=== PATIENT | female | born 1980 | race African-American/Black ===

== ENCOUNTER 2017-08-15 20:26 | Inpatient (IN) | payer SELFPAY ==
[~2017-08-15] VITALS: Ht 170.2 cm; Wt 83.9 kg
[2017-08-15] MEDS: LACTATED RINGERS 1,000 ML IV SCH ×2 (21:00→22:56)
[2017-08-15] MEDS ORDERED: BUTORPHANOL TARTRATE 2 MG/ML VIAL IV PRN (21:45)
[2017-08-15] MEDS ORDERED: NALOXONE HCL 0.4 MG/ML 1ML VIAL IM PRN (21:45)
[2017-08-15] MEDS ORDERED: LIDOCAINE HCL 1% 20ML VIAL (Pyxis) INJ INFIL SCH (21:45)
[2017-08-15] MEDS ORDERED: METHYLERGONOVINE MALEATE 0.2 MG/ML IM PRN (21:45)
[2017-08-15 22:23] LABS: CLARITY URINE CLEAR (CLEAR); COLOR URINE YELLOW (YELLOW); KETONES URINE NEGATIVE (NEGATIVE); LEUKOCYTE ESTERASE URINE NEGATIVE (NEGATIVE); NITRITE URINE NEGATIVE (NEGATIVE); OCCULT BLOOD URINE NEGATIVE (NEGATIVE); PH URINE 7.5 (4.5-8.0); PROTEIN URINE NEGATIVE (NEGATIVE); SPECIFIC GRAVITY URINE 1.013 (1.005-1.030)
[2017-08-15 22:27] LABS: BASOPHILS % 0.2 % (0.0-2.0); EOSINOPHILS % 0.7 % (0.0-5.0); HEMATOCRIT. 39.9 % (36.0-48.0); HEMOGLOBIN. 13.2 g/dL (12.0-16.0); LYMPHOCYTES % 18.1 % (20.0-50.0); MEAN CORPUSCULAR HEMOGLOBIN 28.8 pg (28.0-32.0); MEAN CORPUSCULAR VOLUME 86.7 fL (81.0-99.0); MEAN PLATELET VOLUME 9.8 fl (7.4-10.4); MONOCYTES % 7.1 % (2.0-8.0); NEUTROPHILS % 73.9 % (40.0-76.0); PLATELET 170 x1000/uL (130-400); RED CELL DISTRIBUTION WIDTH 14.2 % (11.6-14.6)
[2017-08-15 22:30] LABS: PARTIAL THROMBOPLASTIN TIME 30.5 sec (23.4-31.0); PROTHROMBIN TIME 10.1 sec (9.4-11.6)
[2017-08-15 22:41] LABS: *AMPHETAMINES SCREEN URINE NEGATIVE (NEGATIVE); *BARBITURATES SCREEN URINE NEGATIVE (NEGATIVE); *BENZODIAZEPINES SCREEN URINE NEGATIVE (NEGATIVE); *COCAINE SCREEN URINE NEGATIVE (NEGATIVE); CANNABINOID URINE SCREEN NEGATIVE (NEGATIVE); METHADONE URINE SCREEN NEGATIVE (NEGATIVE); OPIATES URINE SCREEN NEGATIVE (NEGATIVE); PHENCYCLIDINE URINE SCREEN NEGATIVE (NEGATIVE)
[2017-08-15] MEDS ORDERED: IBUPROFEN 400MG TABLET PO PRN (22:45)
[2017-08-15] MEDS ORDERED: LANOLIN OINT 0.25 GM TUBE TOP PRN (22:45)
[2017-08-15] MEDS ORDERED: IBUPROFEN 800MG TABLET PO PRN (22:45)
[2017-08-15] MEDS ORDERED: BENZOCAINE/LANOLIN/ALOE VERA SPRAY TOP PRN (22:45)
[2017-08-15] MEDS ORDERED: DEXT 5%/LR + PITOCIN 20UNITS/L 1,000 ML IV SCH (23:08)
[2017-08-16 03:00] VITALS: BP 132/60
[2017-08-16 03:30] VITALS: BP 117/71
[2017-08-16 04:45] VITALS: BP 111/64
[2017-08-16 07:38] VITALS: BP 104/74
[2017-08-16] MEDS: PRENATAL VIT/FE FUMARATE/FA TABLET PO SCH (09:03)
[2017-08-16 10:46] LABS: HEMATOCRIT 37.8 % (36.0-48.0); HEMOGLOBIN 12.6 g/dL (12.0-16.0)
[2017-08-16 14:00] VITALS: BP 130/83
[2017-08-16 23:10] VITALS: BP 131/69
[2017-08-17 08:00] VITALS: BP 119/73
[2017-08-17] MEDS: PRENATAL VIT/FE FUMARATE/FA TABLET PO SCH (09:29)
== END 2017-08-17 14:45 | disposition home or self-care (01) | DRG 560 ==
LOC: L&D 20:26 → OBSVTOIN 20:26 → 7EST PP/OB 08-16 02:26
PROVIDERS: ADMIT Obstetrics & Gynecology Obstetrics; ATTEND Obstetrics & Gynecology Obstetrics
PROC: 10E0XZZ Delivery of Products of Conception, External Approach (ICD-10-PCS; principal; 2017-08-15 23:26)
DX: O80 Encounter for full-term uncomplicated delivery (principal); Z37.0 Single live birth; Z3A.40 40 weeks gestation of pregnancy
CPT/HCPCS: 36415; 80305; 81003; 85014; 85018; 85025; 85610; 85730; 86592; G0378; J2590; J7120